=== PATIENT | male | born 1985 | race Caucasian/White ===

== ENCOUNTER 2017-11-30 10:27 | Emergency (ER) | payer BC ==
[~2017-11-30] VITALS: Ht 172.7 cm; Wt 72.6 kg
[2017-11-30] MEDS ORDERED: LORAZEPAM0.5 MG ORAL (10:43)
[2017-11-30] MEDS ORDERED: LEXAPRO10 MG ORAL (10:43)
[2017-11-30] MEDS ORDERED: NORCO 5-325 TA1 EACH ORAL (11:11)
[2017-11-30] MEDS ORDERED: NEURONTIN300 MG ORAL (11:11)
[2017-11-30] MEDS ORDERED: MEDROL4 M1 PO (11:11)
[2017-11-30] MEDS ORDERED: IBUPROFEN600 MG ORAL (11:11)
[2017-11-30] MEDS ORDERED: Norco 5mg/325mg tab PO ONE (11:15)
--- NOTE | 2017-11-30 11:15 | Emergency Room Report ---
History of Present Illness General Chief Complaint: Pain Source: Patient Present Illness HPI 32yo M complains of right neck painright arm for the past 3 days Reports no relief with ibuprofen or Tylenol He denies numbness, tingling, weakness He reports it started after sleeping awkwardly on it. He has trouble getting into a comfortable position and reports it seems to be a little better with his arm raised above his head He denies any trauma Allergies: Coded Allergies: No Known Allergies (Unverified , 11/30/17) Patient History Past Medical History: see triage record Reviewed Nursing Documentation: PMH: Agreed; PSxH: Agreed Nursing Documentation-PMH Past Medical History: No Stated History Review of Systems All Other Systems: negative except mentioned in HPI Physical Exam Vital Signs Date Time Temp Pulse Resp B/P (MAP) Pulse Ox O2 Delivery O2 Flow Rate FiO2 11/30/17 10:39 98.2 61 17 115/77 96 Room Air 98.2 Sp02 EP Interpretation: reviewed, normal General Appearance: no apparent distress, alert, non-toxic Head: normocephalic Eyes: bilateral eye normal inspection, bilateral eye PERRL, bilateral eye EOMI ENT: normal ENT inspection, hearing grossly normal, normal pharynx, no angioedema, normal voice, moist mucus membranes Neck: normal inspection, full range of motion, supple, supple/symm/no masses Respiratory: chest non-tender, lungs clear, normal breath sounds, chest symmetrical, palpation of chest normal Cardiovascular #1: normal peripheral pulses, regular rate, rhythm Cardiovascular #2: 2+ radial (R), 2+ radial (L) Gastrointestinal: normal inspection, non tender, soft, no mass, no guarding, no rebound Rectal: deferred Genitourinary: normal inspection, no CVA tenderness Musculoskeletal: back normal, gait/station normal, normal range of motion, non- tender, no calf tenderness Neurologic: alert, responsive, forensic investigator III-XII nml as tested, motor strength/tone normal, DTRs symmetric, sensory intact, cerebellar normal, speech normal Psychiatric: judgement/insight normal, memory normal, mood/affect normal, no suicidal/homicidal ideation Skin: normal color, no rash, warm/dry, normal turgor Lymphatic: no adenopathy Medical Decision Making Diagnostic Impression: Primary Impression: Radiculopathy of cervical region ER Course Patient with symptoms very consistent with cervical radiculopathy, no neurologic deficits, we'll give Medrol, gabapentin, 5 tabs of [place], ibuprofen, follow-up with PMD Last Vital Signs Date Time Temp Pulse Resp B/P (MAP) Pulse Ox O2 Delivery O2 Flow Rate FiO2 11/30/17 10:39 98.2 61 17 115/77 96 Room Air 98.2 Disposition: HOME, SELF-CARE Condition: Stable Scripts Gabapentin (Neurontin) 300 Mg Capsule 300 MG ORAL FOUR TIMES A DAY for 7 Days, CAP 0 Refills Prov: TALITA MARIN M.D 11/30/17 Ibuprofen* (MOTRIN*) 600 Mg Tablet 600 MG ORAL Q6H PRN for For Pain, #30 TAB Prov: TALITA MARIN M.D 11/30/17 Hydrocodone Bit/Acetaminophen 5-325* (NORCO 5-325*) 1 Each Tablet 1 TAB ORAL Q6H PRN for For Pain, #5 TAB 0 Refills Prov: TALITA MARIN M.D 11/30/17 Methylprednisolone (MEDROL) 4 Mg Tab.ds.pk 4 MG PO DAILY for 6 Days, #1 PACK Prov: TALITA MARIN M.D 11/30/17 Patient Instructions: Cervical Radiculopathy, [id number] TALITA MARIN M.D Nov 30, 2017 11:15
[2017-11-30 11:26] VITALS: BP 115/77
== END 2017-11-30 11:40 | disposition home or self-care (01) ==
LOC: EMR 11:36
DX: M54.12 Radiculopathy, cervical region (principal)
CPT/HCPCS: 99284; J8540